=== PATIENT | male | born 1935 | race Caucasian/White ===

== ENCOUNTER → 2016-06-28 | Outpatient (CLI) | payer MEDICARE ==
[2016-06-28 14:14] LABS: BLOOD UREA NITROGEN 17 mg/dL (7-18)
[2016-06-28 14:17] LABS: ASPARTATE AMINO TRANSFERASE 14 U/L (15-37)
== END | disposition home or self-care (01) ==
LOC: CFH 12:04
PROVIDERS: ATTEND Physician Assistant
DX: K21.9 Gastro-esophageal reflux disease without esophagitis (principal)
CPT/HCPCS: 36415; 80053; 83690; 85025

== ENCOUNTER → 2016-07-01 | Outpatient (CLI) | payer MEDICARE | END | disposition home or self-care (01) | LOC: CFH 06:34 | PROVIDERS: ATTEND Physician Assistant | DX: N28.1 Cyst of kidney, acquired (principal) | CPT/HCPCS: 76700 ==

== ENCOUNTER → 2016-08-29 | Outpatient (CLI) | payer MEDICARE ==
[~2016-08-29] MED LIST: OMNIPAQUE 350 MG/ML, 100ML BOTTLE ONE
== END | disposition home or self-care (01) ==
LOC: CFH 07:39
DX: R16.0 Hepatomegaly, not elsewhere classified (principal); I25.10 Atherosclerotic heart disease of native coronary artery without angina pectoris
CPT/HCPCS: 74170; Q9967

== ENCOUNTER → 2016-09-26 | Outpatient (CLI) | payer MEDICARE | END | disposition home or self-care (01) | LOC: CFH 10:36 | PROVIDERS: ATTEND Internal Medicine Cardiovascular Disease | DX: I08.2 Rheumatic disorders of both aortic and tricuspid valves (principal); Z95.1 Presence of aortocoronary bypass graft | CPT/HCPCS: 93306 ==

== ENCOUNTER → 2017-03-14 | Outpatient (CLI) | payer MEDICARE | END | disposition home or self-care (01) | LOC: CFH 11:11 | PROVIDERS: ATTEND Nurse Practitioner Family | DX: M85.9 Disorder of bone density and structure, unspecified (principal); M81.0 Age-related osteoporosis without current pathological fracture; Z85.46 Personal history of malignant neoplasm of prostate | CPT/HCPCS: 77080 ==

== ENCOUNTER → 2017-03-24 | Outpatient (CLI) | payer MEDICARE | END | disposition home or self-care (01) | LOC: PETCFH 09:46 | PROVIDERS: ATTEND Urology | DX: C61 Malignant neoplasm of prostate (principal) | CPT/HCPCS: 78306; A9503 ==

== ENCOUNTER → 2017-06-09 | Outpatient (CLI) | payer MEDICARE ==
[~2017-06-09] MED LIST changes: -OMNIPAQUE 350 MG/ML, 100ML BOTTLE ONE; +OMNIPAQUE 350 MG/ML, 150 ML BOTTLE ONE
== END | disposition home or self-care (01) ==
LOC: CFH 08:36
PROVIDERS: ATTEND Urology
DX: N28.1 Cyst of kidney, acquired (principal); K76.89 Other specified diseases of liver; R91.1 Solitary pulmonary nodule; C61 Malignant neoplasm of prostate
CPT/HCPCS: 74178; 82565; Q9967

== ENCOUNTER → 2017-07-28 | Outpatient (CLI) | payer MEDICARE | LOC: CFH 07:42 | PROVIDERS: ATTEND Internal Medicine | DX: R91.8 Other nonspecific abnormal finding of lung field (principal); C61 Malignant neoplasm of prostate | CPT/HCPCS: 71250 ==

== ENCOUNTER → 2017-09-15 | Outpatient (CLI) | payer MEDICARE | END | disposition home or self-care (01) | LOC: CFH 10:22 | PROVIDERS: ATTEND Internal Medicine | DX: R91.1 Solitary pulmonary nodule (principal); N28.1 Cyst of kidney, acquired | CPT/HCPCS: 71250 ==

== ENCOUNTER → 2017-11-16 | Outpatient (CLI) | payer MEDICARE | END | disposition home or self-care (01) | LOC: CVU 06:51 | PROVIDERS: ATTEND Physician Assistant Medical | DX: Z02.9 Encounter for administrative examinations, unspecified (principal) ==

== ENCOUNTER → 2017-11-23 | Outpatient (CLI) | payer MEDICARE | END | disposition home or self-care (01) | LOC: PETCFH 13:33 | PROVIDERS: ATTEND Genetic Counselor, MS | DX: R91.1 Solitary pulmonary nodule (principal); Z85.46 Personal history of malignant neoplasm of prostate | CPT/HCPCS: 78815; A9552 ==

== ENCOUNTER 2018-01-04 09:38 | Day surgery (SDC) | payer MEDICARE ==
[~2018-01-04] VITALS: Ht 175.3 cm; Wt 68.2 kg
[2018-01-04] MEDS ORDERED: SODIUM CHLORIDE 0.9% 1,000 ML IV ONE ×2 (10:00→10:42)
[2018-01-04 10:12] VITALS: BP 133/72
[2018-01-04 10:31] LABS: BASOPHILS # (AUTO) 0.05 x10^3/uL (0-0.1); BASOPHILS % (AUTO) 1 % (0-1); EOSINOPHILS % (AUTO) 2 % (1-7); LYMPHOCYTES # (AUTO) 1.92 x10^3/uL (1-3.4); LYMPHOCYTES % (AUTO) 19 % (22-44); MD NO; MEAN CORPUSCULAR HEMOGLOBIN 29.3 pg (27.5-34.5); MEAN CORPUSCULAR HGB CONC 33.3 g/dL (33.2-36.2); MEAN PLATELET VOLUME 8.5 fL (7.4-10.4); MONOCYTES # (AUTO) 0.71 x10^3/uL (0.2-0.8); MONOCYTES % (AUTO) 7 % (2-9); NEUTROPHILS # (AUTO) 7.33 x10^3/uL (1.8-6.8); NEUTROPHILS % (AUTO) 72 % (42-75); PLATELET COUNT 226 x10^3/uL (130-400); RED BLOOD COUNT 5.37 x10^6/uL (4.38-5.82); RED CELL DISTRIBUTION WIDTH 13.5 % (9.4-14.8)
[2018-01-04] MEDS ORDERED: CHOL5000 PO ×2 (10:39)
[2018-01-04] MEDS ORDERED: MAGN400T36 PO (10:39)
[2018-01-04] MEDS ORDERED: LOVA10TA PO (10:39)
[2018-01-04] MEDS ORDERED: METO25TA91 PO (10:39)
[2018-01-04] MEDS ORDERED: BENZ-17 PO (10:39)
[2018-01-04] MEDS ORDERED: KRIL1CAP9 PO (10:39)
[2018-01-04] MEDS ORDERED: DIAZ5TAB4 PO (10:39)
[2018-01-04] MEDS ORDERED: PANT40TA5 PO (10:39)
[2018-01-04] MEDS ORDERED: MULT-6 PO (10:39)
[2018-01-04 10:43] LABS: ALBUMIN 3.6 g/dL (3.4-5.0); ANION GAP 8 mmol/L (5-15); CALCIUM 8.8 mg/dL (8.5-10.1); CHLORIDE 107 mmol/L (98-107)
[2018-01-04 10:47] LABS: ALANINE AMINOTRANSFERASE 32 U/L (12-78); ALKALINE PHOSPHATASE 60 U/L (45-117); BILIRUBIN,TOTAL 0.5 mg/dL (0.2-1.0); CREATININE 1.09 mg/dL (0.7-1.3); TOTAL PROTEIN 7.5 g/dL (6.4-8.2)
[2018-01-04] MEDS ORDERED: MIDAZOLAM 1 MG/ML, 5ML ONE (12:14)
[2018-01-04] MEDS ORDERED: BIVALIRUDIN 250 MG ONE (12:15)
[2018-01-04] MEDS ORDERED: LIDOCAINE/PF 1%, 30ML ONE (12:15)
[2018-01-04] MEDS ORDERED: TICAGRELOR 90 MG TABLET ONE (12:15)
[2018-01-04] MEDS ORDERED: FENTANYL PF 100 MCG/2ML ONE (12:15)
[2018-01-04] MEDS ORDERED: VERAPAMIL 2.5 MG/ML, 2ML ONE (12:15)
[2018-01-04] MEDS ORDERED: NITROGLYCERIN 5 MG/ML, 10ML ONE (12:15)
[2018-01-04] MEDS ORDERED: HEPARIN 1,000 UNITS/ML, 10ML ONE (12:15)
== END 2018-01-04 16:40 | disposition home or self-care (01) ==
LOC: CACL 09:38
PROVIDERS: ATTEND Internal Medicine Cardiovascular Disease
DX: I25.10 Atherosclerotic heart disease of native coronary artery without angina pectoris (principal); I35.0 Nonrheumatic aortic (valve) stenosis; I65.8 Occlusion and stenosis of other precerebral arteries; E78.00 Pure hypercholesterolemia, unspecified; E11.9 Type 2 diabetes mellitus without complications; E78.5 Hyperlipidemia, unspecified; I10 Essential (primary) hypertension; Z85.46 Personal history of malignant neoplasm of prostate; Z79.899 Other long term (current) drug therapy; Z88.2 Allergy status to sulfonamides; Z98.890 Other specified postprocedural states
CPT/HCPCS: 36415; 80053; 85025; 93455; 93567; 99156; 99157; C1760; C1769; C1894; J2250; J3010; J3490; Q9967; J0583; J1644

== ENCOUNTER → 2018-01-17 | Outpatient (CLI) | payer MEDICARE ==
[~2018-01-17] MED LIST changes: +BENZ-17 PO; +CHOL5000 PO; +DIAZ5TAB4 PO; +KRIL1CAP9 PO; +LOVA10TA PO; +MAGN400T36 PO; +METO25TA91 PO; +MULT-6 PO; +PANT40TA5 PO
== END | disposition home or self-care (01) ==
LOC: CVU 11:00
PROVIDERS: ATTEND Internal Medicine Cardiovascular Disease
DX: I65.23 Occlusion and stenosis of bilateral carotid arteries (principal); R16.0 Hepatomegaly, not elsewhere classified; N40.0 Benign prostatic hyperplasia without lower urinary tract symptoms; I35.0 Nonrheumatic aortic (valve) stenosis; I10 Essential (primary) hypertension; E78.5 Hyperlipidemia, unspecified; Z95.2 Presence of prosthetic heart valve; Z95.1 Presence of aortocoronary bypass graft
CPT/HCPCS: 71275; 74174; 93880; Q9967

== ENCOUNTER 2018-01-23 10:49 | Inpatient (IN) | payer MEDICARE ==
[~2018-01-23] VITALS: Ht 175.3 cm; Wt 70.5 kg
[~2018-01-23 10:49] MED LIST changes: +CHLORHEXIDINE 15 ML UDC ONE; -OMNIPAQUE 350 MG/ML, 150 ML BOTTLE ONE
[2018-01-23] MEDS ORDERED: SODIUM CHLORIDE 0.9% 1,000 ML IV ONE (11:12)
[2018-01-23] MEDS ORDERED: GLUCAGON 1 MG IM PRN (11:30)
[2018-01-23] MEDS ORDERED: DEXTROSE 4 GM TAB.CHEW PO PRN (11:30)
[2018-01-23] MEDS ORDERED: DEXTROSE 50%, 50ML SYRINGE IVPush PRN (11:30)
[2018-01-23] MEDS ORDERED: CHLORHEXIDINE 15 ML UDC MM PRN (11:30)
[2018-01-23] MEDS ORDERED: ONDANSETRON 2MG/ML, 2ML IVPush PRN (11:30)
[2018-01-23] MEDS ORDERED: ASPI81TA45 PO (11:39)
[2018-01-23 12:07] LABS: INTERNATIONAL NORMALIZED RATIO 1.07 (0.93-1.1); PROTHROMBIN TIME 11.3 Seconds (9.6-11.5)
[2018-01-23 12:10] LABS: ALBUMIN 3.8 g/dL (3.4-5.0); ANION GAP 8 mmol/L (5-15); CALCIUM 8.5 mg/dL (8.5-10.1); CHLORIDE 107 mmol/L (98-107)
[2018-01-23 12:11] LABS: BASOPHILS # (AUTO) 0.04 x10^3/uL (0-0.1); BASOPHILS % (AUTO) 0 % (0-1); EOSINOPHILS # (AUTO) 0.21 x10^3/uL (0-0.4); EOSINOPHILS % (AUTO) 2 % (1-7); LYMPHOCYTES # (AUTO) 1.93 x10^3/uL (1-3.4); LYMPHOCYTES % (AUTO) 18 % (22-44); MD NO; MEAN CORPUSCULAR HEMOGLOBIN 29.8 pg (27.5-34.5); MEAN CORPUSCULAR HGB CONC 33.2 g/dL (33.2-36.2); MEAN CORPUSCULAR VOLUME 89.8 fL (81-97); MEAN PLATELET VOLUME 9.1 fL (7.4-10.4); MONOCYTES # (AUTO) 0.68 x10^3/uL (0.2-0.8); MONOCYTES % (AUTO) 6 % (2-9); NEUTROPHILS # (AUTO) 7.66 x10^3/uL (1.8-6.8); NEUTROPHILS % (AUTO) 73 % (42-75); PLATELET COUNT 183 x10^3/uL (130-400); RED BLOOD COUNT 5.49 x10^6/uL (4.38-5.82)
[2018-01-23 12:15] LABS: ALANINE AMINOTRANSFERASE 28 U/L (12-78); ALKALINE PHOSPHATASE 54 U/L (45-117); BILIRUBIN,TOTAL 0.7 mg/dL (0.2-1.0); CREATININE 1.12 mg/dL (0.7-1.3); TOTAL PROTEIN 7.6 g/dL (6.4-8.2)
[2018-01-23] MEDS ORDERED: PROTAMINE SULFATE 10 MG/ML, 5ML ONE ×2 (13:36→13:55)
[2018-01-23] MEDS ORDERED: FENTANYL PF 250 MCG/5ML ONE (13:53)
[2018-01-23] MEDS ORDERED: HEPARIN 1,000 UNITS/ML, 10ML ONE (13:55)
[2018-01-23] MEDS ORDERED: PROPOFOL 10 MG/ML, 20ML ONE ×2 (13:57→14:27)
[2018-01-23] MEDS ORDERED: SUCCINYLCHOLINE 20 MG/ML, 10ML ONE (13:57)
[2018-01-23] MEDS ORDERED: CEFAZOLIN 1,000 MG ONE (13:57)
[2018-01-23] MEDS ORDERED: EPINEPHRINE 1 MG/ML, 1ML ONE (13:57)
[2018-01-23] MEDS ORDERED: ONDANSETRON 2MG/ML, 2ML ONE (13:57)
[2018-01-23] MEDS ORDERED: ROCURONIUM 10 MG/ML,10ML ONE (13:57)
[2018-01-23] MEDS ORDERED: HYDROcodone/APAP 5/325 TABLET PO PRN (15:30)
[2018-01-23] MEDS ORDERED: hydrALAzine 20 MG/ML, 1ML IVPush PRN (15:30)
[2018-01-23] MEDS ORDERED: ACETAMINOPHEN 325 MG TABLET PO PRN (15:30)
[2018-01-23] MEDS ORDERED: LABETALOL 20 MG/4 ML IVPush PRN (15:30)
[2018-01-23 19:13] VITALS: BP 136/72
[2018-01-23] MEDS: LOVASTATIN 10 MG TABLET PO SCH (20:16)
[2018-01-23] MEDS: SODIUM CHLORIDE FLUSH 10ML SYR IVF SCH (20:18)
[2018-01-23] MEDS ORDERED: CLOPIDOGREL 300 MG TABLET PO ONE (21:00)
[2018-01-24 02:00] VITALS: BP 115/70
[2018-01-24 06:23] LABS: BASOPHILS # (AUTO) 0.02 x10^3/uL (0-0.1); BASOPHILS % (AUTO) 0 % (0-1); EOSINOPHILS # (AUTO) 0.07 x10^3/uL (0-0.4); EOSINOPHILS % (AUTO) 1 % (1-7); LYMPHOCYTES # (AUTO) 1.14 x10^3/uL (1-3.4); LYMPHOCYTES % (AUTO) 8 % (22-44); MD NO; MEAN CORPUSCULAR HEMOGLOBIN 29.8 pg (27.5-34.5); MEAN CORPUSCULAR HGB CONC 33.5 g/dL (33.2-36.2); MEAN CORPUSCULAR VOLUME 88.9 fL (81-97); MEAN PLATELET VOLUME 8.9 fL (7.4-10.4); MONOCYTES % (AUTO) 8 % (2-9); NEUTROPHILS # (AUTO) 11.92 x10^3/uL (1.8-6.8); NEUTROPHILS % (AUTO) 83 % (42-75); PLATELET COUNT 136 x10^3/uL (130-400); RED BLOOD COUNT 4.84 x10^6/uL (4.38-5.82); RED CELL DISTRIBUTION WIDTH 14.4 % (9.4-14.8)
[2018-01-24 06:30] LABS: ANION GAP 8 mmol/L (5-15); CALCIUM 8.8 mg/dL (8.5-10.1); CHLORIDE 106 mmol/L (98-107)
[2018-01-24 06:31] LABS: CREATININE 0.98 mg/dL (0.7-1.3)
[2018-01-24] MEDS: CLOPIDOGREL 75 MG TABLET PO SCH (08:21)
[2018-01-24] MEDS: METOPROLOL SUCCINATE 25 MG TAB.ER.24H PO SCH (08:21)
[2018-01-24] MEDS: ASPIRIN 81 MG TABLET EC PO SCH (08:21)
[2018-01-24] MEDS: SODIUM CHLORIDE FLUSH 10ML SYR IVF SCH ×2 (08:22→20:25)
[2018-01-24] MEDS ORDERED: CLOP75TA PO (08:58)
[2018-01-24] MEDS ORDERED: ASPIRIN 81 MG TABLET EC PO SCH (09:00)
[2018-01-24 09:07] VITALS: BP 131/72
[2018-01-24 14:12] VITALS: BP 133/75
[2018-01-24] MEDS ORDERED: POLYETHYLENE GLYCOL 17 GM PACKET NG PRN (15:30)
[2018-01-24] MEDS: PANTOPROZOLE 40MG TABLET PO SCH (15:39)
[2018-01-24] MEDS: SUCRALFATE 1 GM/10 ML UDC PO SCH ×2 (15:39→20:25)
[2018-01-24 19:29] VITALS: BP 144/66
[2018-01-24] MEDS: LOVASTATIN 10 MG TABLET PO SCH (20:26)
[2018-01-24] MEDS ORDERED: DOCUSATE 100 MG CAPSULE PO PRN (21:00)
[2018-01-25 00:42] VITALS: BP 135/75
[2018-01-25 05:10] LABS: MEAN CORPUSCULAR HGB CONC 33.6 g/dL (33.2-36.2); MEAN CORPUSCULAR VOLUME 89.2 fL (81-97); MEAN PLATELET VOLUME 8.8 fL (7.4-10.4); PLATELET COUNT 117 x10^3/uL (130-400); RED CELL DISTRIBUTION WIDTH 14.3 % (9.4-14.8)
[2018-01-25 05:43] LABS: BASOPHILS % (AUTO) 1 % (0-1); EOSINOPHILS # (AUTO) 0.04 x10^3/uL (0-0.4); EOSINOPHILS % (AUTO) 0 % (1-7); LYMPHOCYTES # (AUTO) 1.69 x10^3/uL (1-3.4); LYMPHOCYTES % (AUTO) 8 % (22-44); MD SCAN; MONOCYTES # (AUTO) 1.71 x10^3/uL (0.2-0.8); MONOCYTES % (AUTO) 9 % (2-9); NEUTROPHILS # (AUTO) 16.62 x10^3/uL (1.8-6.8); NEUTROPHILS % (AUTO) 82 % (42-75)
[2018-01-25] MEDS: PANTOPROZOLE 40MG TABLET PO SCH (06:27)
[2018-01-25 07:06] VITALS: BP 144/80
[2018-01-25] MEDS: METOPROLOL SUCCINATE 25 MG TAB.ER.24H PO SCH (07:57)
[2018-01-25] MEDS: SODIUM CHLORIDE FLUSH 10ML SYR IVF SCH ×2 (07:57→21:29)
[2018-01-25] MEDS: SUCRALFATE 1 GM/10 ML UDC PO SCH ×4 (07:57→20:56)
[2018-01-25 08:01] LABS: OCCULT BLOOD POSITIVE (NEGATIVE)
[2018-01-25] MEDS: CLOPIDOGREL 75 MG TABLET PO SCH (09:07)
[2018-01-25] MEDS: ASPIRIN 81 MG TABLET EC PO SCH (09:07)
[2018-01-25 09:45] LABS: MEAN CORPUSCULAR HEMOGLOBIN 30.1 pg (27.5-34.5); MEAN CORPUSCULAR HGB CONC 33.8 g/dL (33.2-36.2); MEAN CORPUSCULAR VOLUME 89.3 fL (81-97); MEAN PLATELET VOLUME 8.8 fL (7.4-10.4); PLATELET COUNT 119 x10^3/uL (130-400); RED BLOOD COUNT 4.83 x10^6/uL (4.38-5.82); RED CELL DISTRIBUTION WIDTH 14.3 % (9.4-14.8)
[2018-01-25 10:18] LABS: BASOPHILS # (AUTO) 0.01 x10^3/uL (0-0.1); BASOPHILS % (AUTO) 0 % (0-1); EOSINOPHILS # (AUTO) 0.12 x10^3/uL (0-0.4); EOSINOPHILS % (AUTO) 1 % (1-7); LYMPHOCYTES # (AUTO) 1.58 x10^3/uL (1-3.4); LYMPHOCYTES % (AUTO) 8 % (22-44); MD SCAN; MONOCYTES % (AUTO) 7 % (2-9); NEUTROPHILS # (AUTO) 16.57 x10^3/uL (1.8-6.8); NEUTROPHILS % (AUTO) 85 % (42-75)
[2018-01-25 11:30] VITALS: BP 89/57
[2018-01-25 11:30] LABS: MICROSCOPIC NOT IND
[2018-01-25 11:32] LABS: CULTURE INDICATED? NO
[2018-01-25 12:27] VITALS: BP 133/78
[2018-01-25] MEDS ORDERED: GOLYTELY 4,000ML ORAL.SOL PO ONE (17:00)
[2018-01-25 20:39] VITALS: BP 162/84
[2018-01-25] MEDS: LOVASTATIN 10 MG TABLET PO SCH (20:56)
[2018-01-26 00:34] VITALS: BP 141/88
[2018-01-26] MEDS: PANTOPROZOLE 40MG TABLET PO SCH (06:16)
[2018-01-26 06:53] VITALS: BP 114/71
[2018-01-26] MEDS: SUCRALFATE 1 GM/10 ML UDC PO SCH ×2 (09:00→11:22)
[2018-01-26] MEDS: SODIUM CHLORIDE FLUSH 10ML SYR IVF SCH (09:00)
[2018-01-26] MEDS: METOPROLOL SUCCINATE 25 MG TAB.ER.24H PO SCH (09:01)
[2018-01-26] MEDS: ASPIRIN 81 MG TABLET EC PO SCH (09:01)
[2018-01-26] MEDS: CLOPIDOGREL 75 MG TABLET PO SCH (09:01)
== END 2018-01-26 13:41 | disposition home or self-care (01) | DRG 266 ==
LOC: ORIP 10:49 → CCU 14:52 → 5SO 19:22
PROVIDERS: ADMIT Internal Medicine Cardiovascular Disease; ATTEND Internal Medicine Cardiovascular Disease
PROC: B246ZZ4 Ultrasonography of Right and Left Heart, Transesophageal (ICD-10-PCS; 2018-01-23)
PROC: 02RF38Z Replacement of Aortic Valve with Zooplastic Tissue, Percutaneous Approach (ICD-10-PCS; principal; 2018-01-23 13:30)
DX: I35.0 Nonrheumatic aortic (valve) stenosis (principal); Z00.6 Encounter for examination for normal comparison and control in clinical research program; K29.01 Acute gastritis with bleeding; I50.22 Chronic systolic (congestive) heart failure; C61 Malignant neoplasm of prostate; E11.9 Type 2 diabetes mellitus without complications; E78.5 Hyperlipidemia, unspecified; K59.09 Other constipation; Z86.010 Personal history of colon polyps; Z87.891 Personal history of nicotine dependence; Z92.3 Personal history of irradiation; D69.6 Thrombocytopenia, unspecified; R91.1 Solitary pulmonary nodule; I11.0 Hypertensive heart disease with heart failure
CPT/HCPCS: 33361; 36415; 71046; 80048; 80053; 81003; 82272; 83880; 85014; 85018; 85025; 85347; 85610; 85730; 86850; 86900; 86923; 87081; 93005; 93308; 93312; 93320; 93321; 93325; 93355; C1760; C1769; C1894; G0378; J0171; J0690; J1644; J2405; J2704; J2720; J3010; J0330; Q9967

== ENCOUNTER → 2018-02-19 | Outpatient (CLI) | payer MEDICARE ==
[~2018-02-19] MED LIST changes: +ASPI81TA45 PO; -CHLORHEXIDINE 15 ML UDC ONE; +CLOP75TA PO
== END | disposition home or self-care (01) ==
LOC: CFH 07:46
PROVIDERS: ATTEND Nurse Practitioner
DX: R91.1 Solitary pulmonary nodule (principal); M51.34 Other intervertebral disc degeneration, thoracic region
CPT/HCPCS: 70490; 71250

== ENCOUNTER → 2018-02-20 | Outpatient (CLI) | payer MEDICARE | END | disposition home or self-care (01) | LOC: CVU 09:24 | PROVIDERS: ATTEND Internal Medicine Cardiovascular Disease | DX: I37.1 Nonrheumatic pulmonary valve insufficiency (principal); I10 Essential (primary) hypertension; E78.5 Hyperlipidemia, unspecified; Z95.1 Presence of aortocoronary bypass graft | CPT/HCPCS: 93306 ==

== ENCOUNTER → 2018-05-01 | Outpatient (CLI) | payer MEDICARE | END | disposition home or self-care (01) | LOC: RAD 16:12 | PROVIDERS: ATTEND Physical Medicine & Rehabilitation | DX: M25.78 Osteophyte, vertebrae (principal); M48.061 Spinal stenosis, lumbar region without neurogenic claudication; M48.07 Spinal stenosis, lumbosacral region; M51.16 Intervertebral disc disorders with radiculopathy, lumbar region; M51.17 Intervertebral disc disorders with radiculopathy, lumbosacral region; M41.86 Other forms of scoliosis, lumbar region; M47.26 Other spondylosis with radiculopathy, lumbar region | CPT/HCPCS: 72148 ==

== ENCOUNTER 2018-08-14 11:06 | Outpatient (CLI) | payer MEDICARE | END 2018-08-14 23:59 | disposition home or self-care (01) | LOC: CFH 11:06 | PROVIDERS: ATTEND Internal Medicine | DX: R91.8 Other nonspecific abnormal finding of lung field (principal); J84.10 Pulmonary fibrosis, unspecified; J98.4 Other disorders of lung; M51.34 Other intervertebral disc degeneration, thoracic region; Z95.2 Presence of prosthetic heart valve | CPT/HCPCS: 71250 ==

== ENCOUNTER → 2019-03-20 | Outpatient (CLI) | payer MEDICARE | END | disposition home or self-care (01) | LOC: CVU 09:10 | PROVIDERS: ATTEND Internal Medicine Cardiovascular Disease | DX: I08.8 Other rheumatic multiple valve diseases (principal); I11.9 Hypertensive heart disease without heart failure; E78.5 Hyperlipidemia, unspecified; E11.9 Type 2 diabetes mellitus without complications; I71.9 Aortic aneurysm of unspecified site, without rupture; Z95.1 Presence of aortocoronary bypass graft | CPT/HCPCS: 93306; 93922 ==

== ENCOUNTER → 2019-03-25 | Outpatient (CLI) | payer MEDICARE | END | disposition home or self-care (01) | LOC: CFH 12:48 | PROVIDERS: ATTEND Internal Medicine | DX: R91.8 Other nonspecific abnormal finding of lung field (principal); J98.4 Other disorders of lung | CPT/HCPCS: 71250 ==

== ENCOUNTER → 2019-04-03 | Outpatient (CLI) | payer MEDICARE | END | disposition home or self-care (01) | LOC: WOUND 13:29 | PROVIDERS: ATTEND Internal Medicine | DX: E11.621 Type 2 diabetes mellitus with foot ulcer (principal); L97.511 Non-pressure chronic ulcer of other part of right foot limited to breakdown of skin; E11.51 Type 2 diabetes mellitus with diabetic peripheral angiopathy without gangrene; I11.0 Hypertensive heart disease with heart failure; I50.9 Heart failure, unspecified; I25.10 Atherosclerotic heart disease of native coronary artery without angina pectoris; M81.0 Age-related osteoporosis without current pathological fracture; I08.8 Other rheumatic multiple valve diseases; E78.5 Hyperlipidemia, unspecified; K21.9 Gastro-esophageal reflux disease without esophagitis; J98.4 Other disorders of lung; Z85.46 Personal history of malignant neoplasm of prostate; Z95.1 Presence of aortocoronary bypass graft | CPT/HCPCS: 97597; G0463 ==

== ENCOUNTER → 2019-04-10 | Outpatient (CLI) | payer MEDICARE | END | disposition home or self-care (01) | LOC: WOUND 13:58 | PROVIDERS: ATTEND Internal Medicine | DX: E11.621 Type 2 diabetes mellitus with foot ulcer (principal); L97.511 Non-pressure chronic ulcer of other part of right foot limited to breakdown of skin; I11.0 Hypertensive heart disease with heart failure; I50.9 Heart failure, unspecified; I25.10 Atherosclerotic heart disease of native coronary artery without angina pectoris; M81.0 Age-related osteoporosis without current pathological fracture; I08.8 Other rheumatic multiple valve diseases; E78.5 Hyperlipidemia, unspecified; K21.9 Gastro-esophageal reflux disease without esophagitis; J98.4 Other disorders of lung; Z85.46 Personal history of malignant neoplasm of prostate; Z95.1 Presence of aortocoronary bypass graft | CPT/HCPCS: G0463 ==

== ENCOUNTER 2019-10-17 10:56 | Emergency (ER) | payer MEDICARE ==
[~2019-10-17] VITALS: Ht 175.3 cm; Wt 68.5 kg
[~2019-10-17 10:56] MED LIST changes: -PANT40TA5 PO; +PANT40TA6 PO
--- NOTE | 2019-10-17 11:05 | NUR ---
EKG DONE: GERALDINE
--- NOTE | 2019-10-17 11:09 | NUR ---
PT DENIES CP, DIZZINESS & NAUSEA CURRENTLY. TOOK TYLENOL AT APPROXIMATELY 0730; REPORTS IMPROVEMENT IN HEAD PAIN. DENIES DYSPNEA, SOB, VISION CHANGES
--- NOTE | 2019-10-17 11:20 | NUR ---
PT TO [facility] PER [facility]; VOIDED SPECIMEN PROVIDED; RETURNED TO ED ROOM 19 W/OUT INCIDENT. CARDIAC & VS MONITORING EQUIPMENT REAPPLIED.
[2019-10-17] MEDS ORDERED: DIAZEPAM 5 MG TABLET PO ONE (11:26)
[2019-10-17] MEDS ORDERED: SODIUM CHLORIDE FLUSH 10ML SYR IVF ONE (11:30)
[2019-10-17] MEDS ORDERED: DIAZEPAM 5 MG TABLET ONE (11:35)
--- NOTE | 2019-10-17 11:46 | NUR ---
PT REFUSED VALIUM. STATES IT'LL KNOCK ME OUT FOR HALF A DAY. ERP WILL BE NOTIFIED.
--- NOTE | 2019-10-17 11:53 | NUR ---
CT ON HOLD; ONE ROOM DOWN; CODE NEURO TO BE DONE FIRST
[2019-10-17 12:09] LABS: BASOPHILS # (AUTO) 0.02 x10^3/uL (0-0.1); BASOPHILS % (AUTO) 0 % (0-1); EOSINOPHILS # (AUTO) 0.16 x10^3/uL (0-0.4); EOSINOPHILS % (AUTO) 2 % (1-7); LYMPHOCYTES # (AUTO) 1.61 x10^3/uL (1-3.4); LYMPHOCYTES % (AUTO) 16 % (22-44); MD NO; MEAN CORPUSCULAR HEMOGLOBIN 29.2 pg (27.5-34.5); MEAN CORPUSCULAR HGB CONC 32.5 g/dL (33.2-36.2); MEAN PLATELET VOLUME 8.6 fL (7.4-10.4); MONOCYTES # (AUTO) 0.72 x10^3/uL (0.2-0.8); MONOCYTES % (AUTO) 7 % (2-9); NEUTROPHILS # (AUTO) 7.82 x10^3/uL (1.8-6.8); NEUTROPHILS % (AUTO) 76 % (42-75); PLATELET COUNT 159 x10^3/uL (130-400); RED BLOOD COUNT 5.43 x10^6/uL (4.38-5.82); RED CELL DISTRIBUTION WIDTH 14.1 % (9.4-14.8)
[2019-10-17 12:15] LABS: ALBUMIN 3.7 g/dL (3.4-5.0); CALCIUM 9.3 mg/dL (8.5-10.1); CHLORIDE 107 mmol/L (98-107)
[2019-10-17 12:23] LABS: CREATININE 1.11 mg/dL (0.7-1.3); TROPONIN I < 0.015 ng/mL (0.000-0.045)
[2019-10-17 12:29] LABS: ANION GAP 8 mmol/L (5-15)
[2019-10-17 14:19] VITALS: BP 130/70
[2019-10-17] MEDS ORDERED: BICA50TA5 PO (17:03)
[2019-10-17] MEDS ORDERED: RAMI5CAP57 PO (17:03)
[2019-10-17] MEDS ORDERED: OMEG1CAP25 PEG (17:03)
[2019-10-17] MEDS ORDERED: LUTEIN-ZEAXANTHIN PO (17:03)
== END 2019-10-17 14:21 | disposition home or self-care (01) ==
LOC: ED 11:44
DX: G44.219 Episodic tension-type headache, not intractable (principal); R42 Dizziness and giddiness; G31.1 Senile degeneration of brain, not elsewhere classified; R11.0 Nausea; M54.2 Cervicalgia; I49.3 Ventricular premature depolarization; R94.31 Abnormal electrocardiogram [ECG] [EKG]; Z95.2 Presence of prosthetic heart valve
CPT/HCPCS: 36415; 70450; 71045; 80048; 82040; 84484; 85025; 93005; 99285

== ENCOUNTER 2020-05-14 06:45 | Outpatient (CLI) | payer MEDICARE ==
[~2020-05-14 06:45] MED LIST changes: +BICA50TA5 PO; +LUTEIN-ZEAXANTHIN PO; +OMEG1CAP25 PEG; +RAMI5CAP57 PO
== END 2020-05-14 23:59 | disposition home or self-care (01) ==
LOC: CVU 06:45
PROVIDERS: ATTEND Internal Medicine Cardiovascular Disease
DX: I08.8 Other rheumatic multiple valve diseases (principal); I65.23 Occlusion and stenosis of bilateral carotid arteries; I11.9 Hypertensive heart disease without heart failure; R55 Syncope and collapse
CPT/HCPCS: 93306; 93356; 93880

== ENCOUNTER 2020-05-27 10:31 | Emergency (ER) | payer MEDICARE ==
[~2020-05-27] VITALS: Ht 175.3 cm; Wt 67.0 kg
--- NOTE | 2020-05-27 11:02 | NUR ---
RAD IN ROOM.
--- NOTE | 2020-05-27 11:06 | NUR ---
PT TO MRI
--- NOTE | 2020-05-27 11:09 | NUR ---
THIS IS A 84YO M W/ C/O EPISODE OF DIFFICULTY W/ SPEECH FOR X10 MINUTES LAST NIGHT. HISTORY OBTAINED FROM SPOUSE D/T PT IN MRI. SPOUSE REPORTS SYMPTOMS RESOLVED LAST NIGHT AND PT HAS NO HX OF STROKE. 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 PT INDEPENDENT AT HOME, A&OX4 BASELINE. WILL CONFIRM DETAILS WHEN PT RETURNS FROM MRI.
--- NOTE | 2020-05-27 11:46 | NUR ---
LAB AT BEDSIDE.
[2020-05-27 11:55] VITALS: BP 121/68
[2020-05-27 12:02] LABS: BASOPHILS % (AUTO) 1 % (0-1); EOSINOPHILS % (AUTO) 2 % (1-7); LYMPHOCYTES % (AUTO) 19 % (22-44); MEAN CORPUSCULAR HEMOGLOBIN 29.8 pg (27.5-34.5); MEAN CORPUSCULAR HGB CONC 33.7 g/dL (33.2-36.2); MEAN PLATELET VOLUME 8.3 fL (7.4-10.4); MONOCYTES % (AUTO) 9 % (2-9); NEUTROPHILS % (AUTO) 68 % (42-75); PLATELET COUNT 172 x10^3/uL (130-400); RED BLOOD COUNT 5.37 x10^6/uL (4.38-5.82); RED CELL DISTRIBUTION WIDTH 13.9 % (9.4-14.8)
[2020-05-27 12:06] LABS: MD NO
[2020-05-27 12:08] LABS: ALANINE AMINOTRANSFERASE 30 U/L (12-78); ALBUMIN 3.8 g/dL (3.4-5.0); CALCIUM 9.7 mg/dL (8.5-10.1); CHLORIDE 106 mmol/L (98-107); CREATININE 0.97 mg/dL (0.7-1.3)
[2020-05-27 12:11] LABS: ALKALINE PHOSPHATASE 71 U/L (45-117); BILIRUBIN,TOTAL 0.4 mg/dL (0.2-1.0); TOTAL PROTEIN 7.9 g/dL (6.4-8.2)
[2020-05-27 12:20] LABS: ANION GAP 6 mmol/L (5-15)
[2020-05-27] MEDS ORDERED: CLOPIDOGREL 75 MG TABLET ONE (12:50)
[2020-05-27] MEDS ORDERED: CLOPIDOGREL 75 MG TABLET PO ONE (13:00)
--- NOTE | 2020-05-27 13:22 | NUR ---
Patient given discharge instructions and they have confirmed that they understand the instructions. Patient ambulatory with steady gait.
== END 2020-05-27 13:24 | disposition home or self-care (01) ==
LOC: ED 12:40
DX: G45.9 Transient cerebral ischemic attack, unspecified (principal); R06.89 Other abnormalities of breathing; I10 Essential (primary) hypertension; E11.9 Type 2 diabetes mellitus without complications
CPT/HCPCS: 36415; 70551; 71045; 80053; 83605; 84145; 85025; 93005; 99285

== ENCOUNTER 2020-06-09 11:49 | Outpatient (CLI) | payer MEDICARE ==
[~2020-06-09 11:49] MED LIST changes: +REGADENOSON 0.4 MG/5 ML SYRINGE ONE
== END 2020-06-09 23:59 | disposition home or self-care (01) ==
LOC: CFH 11:49
PROVIDERS: ATTEND Internal Medicine Cardiovascular Disease
DX: I35.0 Nonrheumatic aortic (valve) stenosis (principal)
CPT/HCPCS: 78452; 93017; A9502; J2785

== ENCOUNTER 2020-09-15 19:32 | Observation (INO) | payer MEDICARE ==
[~2020-09-15] VITALS: Ht 175.3 cm; Wt 68.6 kg
[~2020-09-15 19:32] MED LIST changes: -REGADENOSON 0.4 MG/5 ML SYRINGE ONE
--- NOTE | 2020-09-15 19:55 | NUR ---
BIBA FROM HOME FOR DIZZINESS, LEFT CHEST PAIN OF PRESSURE FOR 2 DAYS. PTY STATES SOME SOB EARLIER, NO RADIATION, WORSE ON EXERTION, BETTER WITH REST. NEW MED 3 WEEKS AGO OF [facility]OM[facility]. PT REPORTS TAKING 324 ASA BEFORE AMBULANCE. ATTACHED TO CARD/SP02/BP MONITORTS. VSS. SHENA KOENIG AT BEDSIDE FOR EVAL PT AMBULATED TO [facility] AND BACK IN BED WITH STEADY GAIT. EKG COMPLETED. PT REPORTS NO PAIN CURRENTLY. DENIES N/V/D.
[2020-09-15 20:28] LABS: BASOPHILS % (AUTO) 1 % (0-1); EOSINOPHILS % (AUTO) 3 % (1-7); LYMPHOCYTES % (AUTO) 20 % (22-44); MEAN CORPUSCULAR HEMOGLOBIN 29.1 pg (27.5-34.5); MEAN PLATELET VOLUME 8.1 fL (7.4-10.4); MONOCYTES % (AUTO) 9 % (2-9); NEUTROPHILS % (AUTO) 68 % (42-75); PLATELET COUNT 171 x10^3/uL (130-400); RED BLOOD COUNT 5.49 x10^6/uL (4.38-5.82); RED CELL DISTRIBUTION WIDTH 13.8 % (9.4-14.8)
--- NOTE | 2020-09-15 20:28 | NUR ---
PT AMBULATED TO BATHROOM AND BACK TO ROOM WITH STEADY GAIT ATTACHED TO MONITORS, VSS. NADN
[2020-09-15 20:36] LABS: ALBUMIN 3.6 g/dL (3.4-5.0); ANION GAP 3 mmol/L (5-15); CALCIUM 8.8 mg/dL (8.5-10.1); CHLORIDE 104 mmol/L (98-107)
[2020-09-15] MEDS ORDERED: CLOP75TA52 PO (20:54)
[2020-09-15] MEDS ORDERED: TAMS-11 PO (20:54)
[2020-09-15 20:55] LABS: ALANINE AMINOTRANSFERASE 29 U/L (12-78); ALKALINE PHOSPHATASE 67 U/L (45-117); BILIRUBIN,TOTAL 0.5 mg/dL (0.2-1.0); CREATININE 0.89 mg/dL (0.7-1.3); TOTAL PROTEIN 7.8 g/dL (6.4-8.2); TROPONIN I < 0.015 ng/mL (0.000-0.045)
--- NOTE | 2020-09-15 21:47 | NUR ---
Patient is resting comfortably in bed. Bed in lowest, rails engaged, call light on lap. Vital Signs within normal limits. WCTM.
[2020-09-15 23:19] VITALS: BP 144/79
[2020-09-15] MEDS ORDERED: RAMIPRIL 5 MG CAP ONE (23:24)
[2020-09-15] MEDS ORDERED: LOVASTATIN 40 MG TABLET ONE (23:24)
[2020-09-15] MEDS ORDERED: LOVASTATIN 20 MG TABLET ONE (23:27)
[2020-09-15] MEDS ORDERED: LOVASTATIN 10 MG TABLET PO SCH (23:30)
[2020-09-15] MEDS ORDERED: RAMIPRIL 5 MG CAP PO SCH (23:30)
[2020-09-15] MEDS ORDERED: TEMPLATE NON-FORMULARY MED. (Cholecalciferol (Vitamin D3)** (Vitamin D3**) 5,000 UNIT) PO SCH (23:30)
[2020-09-15] MEDS ORDERED: LABETALOL 5MG/ML, 20ML IVPush PRN (23:30)
[2020-09-15] MEDS ORDERED: ONDANSETRON 2MG/ML, 2ML IVPush PRN (23:30)
[2020-09-15] MEDS ORDERED: ACETAMINOPHEN 325 MG TABLET PO PRN (23:30)
[2020-09-16 00:12] LABS: TROPONIN I < 0.015 ng/mL (0.000-0.045)
[2020-09-16 02:12] VITALS: BP 104/64
[2020-09-16] MEDS ORDERED: ASPIRIN 81 MG TABLET CHEW PO SCH (06:00)
[2020-09-16] MEDS ORDERED: ASPIRIN 325 MG TABLET EC PO SCH (06:00)
[2020-09-16 06:31] LABS: CHOLESTEROL, TOTAL 119 mg/dL (140-239); HDL CHOL % 34 % (26-37); HDL CHOLESTEROL (DIRECT) 40 mg/dL (40-60); LDL CHOLESTEROL,CALCULATED 49 mg/dL (54-169); LDL/HDL RATIO 1.2 (0.5-3.0); TRIGLYCERIDES 148 mg/dL (50-200); TROPONIN I < 0.015 ng/mL (0.000-0.045); VLDL CHOLESTEROL 30 mg/dL (0-25)
[2020-09-16] MEDS ORDERED: TAMSULOSIN 0.4 MG CAP.ER.24H PO SCH (09:00)
[2020-09-16] MEDS ORDERED: MULTIVITAMIN 1 TABLET PO SCH (09:00)
[2020-09-16] MEDS ORDERED: LUTEIN ZEAXANTHIN HOMEMEDPO SCH (09:00)
[2020-09-16] MEDS ORDERED: OMEGA-3/FISH OIL CAPSULE PO SCH (09:00)
[2020-09-16] MEDS ORDERED: PANTOPRAZOLE 40MG TABLET PO SCH (09:00)
[2020-09-16] MEDS ORDERED: MAGNESIUM OXIDE 400 MG TABLET PO SCH (09:00)
[2020-09-16] MEDS ORDERED: ENOXAPARIN 40 MG/0.4 ML SQ SCH (09:30)
[2020-09-16] MEDS ORDERED: ACETAMINOPHEN 325 MG TABLET PO PRN (09:30)
[2020-09-16 10:46] VITALS: BP 132/8
[2020-09-16] MEDS ORDERED: ACID1TAB7 PO (11:07)
[2020-09-16] MEDS ORDERED: LOVA10TA PO (11:07)
[2020-09-16] MEDS ORDERED: LACTOBACILLUS CHEW TABLET PO SCH (16:00)
[2020-09-16] MEDS ORDERED: LOVASTATIN 20 MG TABLET PO SCH (21:00)
== END 2020-09-16 13:48 | disposition home or self-care (01) ==
LOC: ED 20:41 → EDIP 21:08 → INTOOBSV 21:08 → 5SO 23:19
PROVIDERS: ADMIT Family Medicine; ATTEND Internal Medicine
DX: R07.89 Other chest pain (principal); I10 Essential (primary) hypertension; E78.5 Hyperlipidemia, unspecified; I25.10 Atherosclerotic heart disease of native coronary artery without angina pectoris; E11.9 Type 2 diabetes mellitus without complications; N40.0 Benign prostatic hyperplasia without lower urinary tract symptoms; K21.9 Gastro-esophageal reflux disease without esophagitis; I35.0 Nonrheumatic aortic (valve) stenosis; R79.89 Other specified abnormal findings of blood chemistry; G47.33 Obstructive sleep apnea (adult) (pediatric); E87.1 Hypo-osmolality and hyponatremia; Z95.1 Presence of aortocoronary bypass graft; Z95.2 Presence of prosthetic heart valve; Z79.82 Long term (current) use of aspirin; Z85.46 Personal history of malignant neoplasm of prostate; Z86.73 Personal history of transient ischemic attack (TIA), and cerebral infarction without residual deficits; Z79.899 Other long term (current) drug therapy
CPT/HCPCS: 36415; 71045; 80053; 80061; 83036; 84484; 85025; 93005; 93017; 99285; G0378